=== PATIENT | female | born 1945 | race Caucasian/White ===

== ENCOUNTER 2017-02-16 18:36 | Emergency (ER) | payer OTHER ==
[~2017-02-16] VITALS: Ht 160 cm; Wt 100.4 kg
[2017-02-16 19:13] LABS: EOSINOPHIL (%) 0.7 % (0-5); EOSINOPHIL COUNT 0.1 K/uL (0-0.3); HEMATOCRIT 43.2 % (36.0-46.0); IMMATURE GRANULOCYTE (%) 1.1 % (0.0-0.7); IMMATURE GRANULOCYTE COUNT 0.1 K/uL; INSTRUMENT ABS NEUTROPHIL CT 5.3 K/uL; LYMPHOCYTE COUNT 2.3 K/uL (1.0-2.8); MCH 31.4 PG (29.0-34.0); MCHC 33.3 G/DL (30.0-36.0); MCV 94.3 FL (83-99); MEAN PLAT.VOLUME 9.4 uM^3 (9.5-12.4); MONOCYTE (%) 9.2 % (3-12); MONOCYTE COUNT 0.8 K/uL (0-0.8); NEUTROPHIL (%) 61.9 % (45-76); NEUTROPHIL COUNT 5.3 K/uL (1.8-6.4); PLATELET COUNT 235 K/uL (156-360); RBC DIS.WIDTH-CV 13.1 % (11.8-14.6); RBC DIS.WIDTH-SD 44.7 % (39-53); RED BLOOD COUNT 4.58 M/uL (3.80-5.20); WHITE BLOOD COUNT 8.5 K/uL (4.1-10.2)
[2017-02-16 19:22] LABS: CHLORIDE 107 mEq/L (99-109); POTASSIUM 3.4 mEq/L (3.7-5.4); SODIUM 143 mEq/L (136-147)
[2017-02-16 19:24] LABS: GLUCOSE 133 mg/dL (70-99)
[2017-02-16 19:25] LABS: ANION GAP 13 MEQ/L (2-14)
[2017-02-16 19:26] LABS: TOTAL BILIRUBIN 0.5 mg/dL (0.0-1.0)
[2017-02-16 19:27] LABS: ALKALINE PHOSPHATASE 65 IU/L (3-129)
[2017-02-16 19:28] LABS: GFR ESTIMATE (CALCULATED) > 59 mL/min/
[2017-02-16 19:29] LABS: UREA NITROGEN (BUN) 12 mg/dL (9-23)
[2017-02-16] MEDS ORDERED: VALIUM5 MG PO (20:47)
[2017-02-16] MEDS ORDERED: MOTRIN600 MG PO (20:47)
[2017-02-16 21:06] VITALS: BP 144/72
== END 2017-02-16 21:07 | disposition home or self-care (01) ==
LOC: EME 18:36
PROVIDERS: Physician Assistant
DX: S20.219A Contusion of unspecified front wall of thorax, initial encounter (principal); S16.1XXA Strain of muscle, fascia and tendon at neck level, initial encounter; V89.2XXA Person injured in unspecified motor-vehicle accident, traffic, initial encounter; Y93.9 Activity, unspecified
CPT/HCPCS: 71020; 72050; 80053; 85025; 99281; 99284